=== PATIENT | female | born 1960 | race Caucasian/White ===

== ENCOUNTER 2021-06-19 07:25 | Day surgery (SDC) | payer OTHER ==
[~2021-06-19] VITALS: Ht 166.4 cm; Wt 90.0 kg
[~2021-06-19 07:25] MED LIST: AMLO2.5T5 PO; BISACODYL 10 MG SUPP.RECT. ONE; BUPIVACAINE-EPI 0.5% 30 ML VIAL KIT. ONE; HEPARIN 1,000 UNIT in IV NORMAL SALINE 1,000 ML for SURG PERIOP IRR ONE; IOHEXOL 300 MG/ML 50 ML VIAL. ONE; PANT40TA77 PO; PRAV40TA2 PO; SURGICEL HEMOSTAT 4X8 EACH. ONE
[2021-06-19 07:54] VITALS: BP 180/95
[2021-06-19] MEDS ORDERED: PROPOFOL 10 MG/ML (20ML) VIAL. IV ONE (08:24)
[2021-06-19] MEDS ORDERED: LIDOCAINE 2% PF 5 ML VIAL. ONE (08:24)
[2021-06-19] MEDS ORDERED: MIDAZOLAM HCL/PF 2 MG/2 ML VIAL. ONE (08:24)
[2021-06-19] MEDS ORDERED: DEXAMETHASONE SOD PHOS 4 MG/ML VIAL ONE (08:24)
[2021-06-19] MEDS ORDERED: FAMOTIDINE 20 MG/2 ML VIAL ONE (08:24)
[2021-06-19] MEDS ORDERED: fentaNYL PF VIAL 250 MCG/5 ML VIAL ONE (08:25)
[2021-06-19] MEDS ORDERED: ROCURONIUM 50 MG/5 ML VIAL. ONE (09:05)
--- NOTE | 2021-06-19 09:07 | PDOC ---
SURGICAL PROGRESS NOTE DATE: 06/19/21 TIME: 09:05 Subjective Pre-Op Note 60 yo F with biliary dyskinesia TO OR for laparoscopic versus open cholecystectomy with cholangiogram. R/R/B/A d/w pt and pt's supportive . Risks, including, but not limited to: bleeding, infection, damage to surrounding structures, risk of anesthesia, risk of open. They appear to understand, their questions are answered and they elect to proceed. Office note H&P reviewed and unchanged. Vital Signs Vital Signs Date Time Temp Pulse Resp B/P (MAP) Pulse Ox O2 Delivery O2 Flow Rate FiO2 06/19/21 07:58 98.0 116 14 180/95 96 Room Air 98.0 Justicifation of Admission Dx: Justifications for Admission: Justification of Admission Dx: N/A OMER BURTON MD Jun 19, 2021 09:07
[2021-06-19] MEDS ORDERED: PHENYLEPHRINE in 0.9% NACL PF 1 MG/10 ML SYRINGE. IV ONE (09:34)
--- NOTE | 2021-06-19 10:19 | RAD ---
EXAM: Intraoperative cholangiogram. HISTORY: Cholecystectomy. Pain. COMPARISON: None. FINDINGS: A single fluoroscopic image is obtained. The total fluoroscopy time is 0.1 minute. There is contrast opacification of the biliary tree and proximal small bowel. No retained stone is seen. IMPRESSION: Intraoperative cholangiogram without evidence of a retained stone. Electronically signed by: Nicky Cristina MD (06/19/2021 10:16 AM) [id number]
[2021-06-19] MEDS ORDERED: fentaNYL PF VIAL 100 MCG/2 ML VIAL IVP PRN (10:30)
[2021-06-19] MEDS ORDERED: IV RINGERS,LACTATED 1000ML 1,000 ML IV SCH (10:30)
[2021-06-19] MEDS ORDERED: PROCHLORPERAZINE 10 MG/2 ML VIAL. IVP PRN (10:30)
[2021-06-19] MEDS ORDERED: HYDROmorphone 2 MG/ML INJ. IVP PRN (10:30)
[2021-06-19] MEDS ORDERED: MORPHINE SULFATE 2 MG/ML INJ. ONE (10:45)
[2021-06-19] MEDS ORDERED: fentaNYL PF VIAL 100 MCG/2 ML VIAL ONE (10:45)
[2021-06-19] MEDS: MORPHINE SULFATE 2 MG/ML INJ. IVP PRN ×2 (10:49→11:04)
[2021-06-19] MEDS: fentaNYL PF VIAL 100 MCG/2 ML VIAL IVP PRN ×2 (10:49→10:55)
--- NOTE | 2021-06-19 10:50 | PDOC4 ---
OPERATIVE NOTE Date: Date: Jun 19, 2021 Pre-Op Diagnosis: Biliary dyskinesia Post-Op Diagnosis: same Procedure Performed: laparoscopic cholecystectomy with cholangiogram Surgeon: Bernabe Burton Anesthesia Type: GETA plus local Blood Loss: 50 Specimans Obtained: gallbladder Findings: morbid obesity, fatty, flacid gallbladder, normal cholangiogram, adherence of transverse colon to anterior abdominal wall, but without obvious complications. Complications: none Operative Note: After obtaining informed consent, patient was taken to OR, induced under GETA and prepped in the usual fashion. 5 mm port placed umbilical and RUQ, 12 port placed epigastric, all under laparoscopic guidance. Abdominal cavity was explored and noted as above. Gallbladder was taken off fossa in dome down fashion using cautery. Anterior and posterior cystic arteries divided between with clips. Cholangiogram obtained via cystic duct and was normal. Cystic duct controlled with clips and hemolok. Gallbladder was placed in bag, delivered and sent to pathology. Copious irrigation. No evidence of bleeding or other pathology. Ports removed without bleeding. Fascia repaired with 0 vicryl. Skin repaired with 4 0 monocryl. Dressing placed. Patient tolerated procedure well and sent to PACU in stable condition. All counts correct. Wound class is 2. OMER BURTON MD Jun 19, 2021 10:50
[2021-06-19] MEDS ORDERED: DOCU-109 PO (11:01)
[2021-06-19] MEDS ORDERED: HYDR-2761 PO (11:01)
[2021-06-19 11:14] VITALS: BP 120/71
[2021-06-19] MEDS ORDERED: HYDROcodone/APAP 5/325MG 1 TAB TABLET PO ONE ×2 (11:15)
--- NOTE | 2021-06-21 17:08 | PATHOLOGY ---
[facility] Accession Number: [id number] . 01 Material submitted: . gallbladder - GALLBLADDER AND CONTENTS . 01 Clinical history: . BILIARY DYSKINESIA LAP BHAKTI . 02 Diagnosis: Gallbladder, laparoscopic cholecystectomy: - Chronic cholecystitis, mild. (JPM:pit; 06/21/2021) QTP 06/21/2021 1342 Local . 02 Comment: There are no calculi identified within the gallbladder lumen or specimen container. Sections of the gallbladder show congestion and focal mild chronic inflammation. There is no evidence of malignancy. (JPM:pit; 06/21/2021) . . 02 Electronically signed: . Jacqeus Hager MD, Pathologist NPI- [id number] . 01 Gross description: . Fixative: Formalin Labeled: Gallbladder and contents Specimen received: Intact Dimensions: 9.5 x 4.4 x 3.3 cm Lymph node: None identified Serosa: Pack-davis, focally ragged and dusky Calculi: None within the specimen or specimen container Mucosa: Dark brown and velvety without davis stippling Wall thickness: Ranges from 0.2 cm to 1.5 cm Abnormalities: None A1-A2: Gallbladder, represented (SOLOMON; 06/20/2021) DKA/DKA 06/20/2021 1215 Local . 02 Pathologist provided ICD-10: K81.1 . 02 CPT . 241315 Specimen Comment: A courtesy copy of this report has been sent to [phone] Specimen Comment: Report sent to Performed at: 01 [facility] [address], [place], [place] [id number] MD Fredo Nevarez MD Phone: [phone] Performed at: 02 [facility] [address] [place], [place] [id number] MD Jacques Hager MD Phone: [phone]
== END 2021-06-19 11:45 | disposition home or self-care (01) ==
LOC: SURG 07:25
PROVIDERS: ATTEND Surgery
DX: K82.8 Other specified diseases of gallbladder (principal); K81.1 Chronic cholecystitis; I10 Essential (primary) hypertension; E78.00 Pure hypercholesterolemia, unspecified; E66.01 Morbid (severe) obesity due to excess calories; K21.9 Gastro-esophageal reflux disease without esophagitis; Z79.899 Other long term (current) drug therapy; Z98.890 Other specified postprocedural states; Z72.89 Other problems related to lifestyle; Z88.8 Allergy status to other drugs, medicaments and biological substances
CPT/HCPCS: 47563; 74300; A4213; A4314; A4930; A6219; C1887; J0690; J1100; J1644; J2250; J2270; J2370; J2704; J3010; J3490; J7030; Q9967